=== PATIENT | male | born 1995 | race Caucasian/White ===

== ENCOUNTER 2017-08-13 12:23 | Emergency (ER) | payer BC ==
--- NOTE | 2017-08-13 14:08 | UC ---
Nausea/Vomiting/Diarrhea HPI - HPI Summary HPI Summary: 22M presents with vomiting for a month. states occasional dry cough. nausea occurs with vomiting sometimes. after vomiting does not always feel better. happens with or without vomiting. occurs mostly in morning. admits to decreased in appetite. has had blood on toilet paper for past 4 years. has history of anxiety but feels not related to symptoms. family history of GERD and lupus. He denies any abdominal pain. no constipation or diarrhea. no dysuria, hematuira, flank pain, urgency or frequency. <Gwen Garcia - Last Filed: 08/13/17 16:55> <Renita Gutiérrez - Last Filed: 08/13/17 18:57> - History of Current Complaint Chief Complaint: UCGI Stated Complaint: VOMITING Time Seen by Provider: 08/13/17 13:54 - Allergies/Home Medications Allergies/Adverse Reactions: Allergies Allergy/AdvReac Type Severity Reaction Status Date / Time Penicillins Allergy SEVERE Verified 08/13/17 13:26 VOMITING PMH/Surg Hx/FS Hx/Imm Hx Endocrine History: Other Other Endocrine History: no DM Cardiovascular History: Other Other Cardiovascular History: no HTN - Surgical History Surgical History: Yes Surgery Procedure, Year, and Place: TONSILLECTOMY - Family History Known Family History: Positive: Other - acid reflux, lupus - Social History Alcohol Use: Rare Substance Use Type: None Smoking Status (MU): Never Smoked Tobacco <Gwen Garcia - Last Filed: 08/13/17 16:55> Review of Systems Constitutional: Negative Cardiovascular: Negative Gastrointestinal: Vomiting, Diarrhea, Nausea All Other Systems Reviewed And Are Negative: Yes <Gwen Garcia - Last Filed: 08/13/17 16:55> Physical Exam Triage Information Reviewed: Yes Appearance: Well-Appearing Vital Signs: Initial Vital Signs Temp 97.7 F 08/13/17 13:27 Pulse 90 08/13/17 13:27 Resp 18 08/13/17 13:27 BP 123/76 08/13/17 13:27 Pulse Ox 100 08/13/17 13:27 Vital Signs Reviewed: Yes Eyes: Positive: Conjunctiva Clear ENT: Positive: Normal ENT inspection, Pharynx normal, TMs normal Respiratory: Positive: Lungs clear, Normal breath sounds Cardiovascular: Positive: RRR Abdomen Description: Positive: Nontender, Soft Bowel Sounds: Positive: Present Musculoskeletal Exam: Normal Neurological Exam: Normal Psychological Exam: Normal Skin Exam: Normal <Gwen Garcia - Last Filed: 08/13/17 16:55> Vital Signs: Initial Vital Signs Temp 97.7 F 08/13/17 13:27 Pulse 90 08/13/17 13:27 Resp 18 08/13/17 13:27 BP 123/76 08/13/17 13:27 Pulse Ox 100 08/13/17 13:27 <Renita Gutiérrez - Last Filed: 08/13/17 18:57> Naus/Vom/Diarrhea Course/Dx - Course Course Of Treatment: 22M presents with vomiting for a month. states occasional dry cough. nausea occurs with vomiting sometimes. after vomiting does not always feel better. happens with or without vomiting. occurs mostly in morning. admits to decreased in appetite. has had blood on toilet paper for past 4 years. has history of anxiety but feels not related to symptoms. family history of GERD and lupus. He denies any abdominal pain. no constipation or diarrhea. no dysuria, hematuira, flank pain, urgency or frequency. on exam abdomen soft nontender. discussed could be multiple causes include acid reflux, IBS, anxiety , gastritis. will treat for GERD in mean time to see if that is cause and give follow up with GI if no improvement. patient understands and agrees with plan. - Differential Dx/Diagnosis Differential Diagnoses - Male: Irritable Bowel Syndrome, Peptic Ulcer Disease, Esophagitis/Gastritis, Gastroenteritis (Viral) Provider Diagnoses: vomiting <Gwen Garcia - Last Filed: 08/13/17 16:55> <Renita Gutiérrez - Last Filed: 08/13/17 18:57> - Differential Dx/Diagnosis Condition At Discharge: Good Discharge <Gwen Garcia - Last Filed: 08/13/17 16:55> <Renita Gutiérrez - Last Filed: 08/13/17 18:57> - Discharge Plan Condition: Good Disposition: HOME Prescriptions: Omeprazole CAP* [Prilosec CAP* 20 MG] 20 mg PO DAILY #14 cap. Ondansetron ODT TAB* [Zofran 4 MG Odt TAB*] 4 mg PO Q6H PRN #20 tab.odt PRN Reason: Nausea Patient Education Materials: Gastroesophageal Reflux Disease (ED) Referrals: Gilmar Robles MD [Medical Doctor] - Additional Instructions: Education is provided about acid reflux which may be causing symptoms Take omeprazole once a day for next 2 weeks If no improvement in two weeks with medication follow up with GI Take Zofran every 6 hours for nausea as needed Return to ED if develop any new or worsening symptoms Attestation Statement User Type: Provider - I was available for consult. This patient was seen by the [facility]. The patient was not presented to, seen by, or examined by me. -Everardo <Renita Gutiérrez - Last Filed: 08/13/17 18:57>
== END 2017-08-13 14:14 | disposition home or self-care (01) ==
LOC: UCCORT 12:23
DX: R11.10 Vomiting, unspecified (principal)
CPT/HCPCS: 99202; G0463